=== PATIENT | female | born 1955 | race Caucasian/White ===

== ENCOUNTER 2017-01-29 01:16 | Inpatient (IN) | payer MEDICAID ==
[~2017-01-29] VITALS: Ht 157.5 cm; Wt 62.2 kg
[~2017-01-29 01:16] MED LIST: AMLO2.5T PO; APIX5TAB PO; ASPI-621 PO; ATOR40TA78 PO; CLON1PAT2 TD; DAPT500V6 IV; FLUC200T PO; FURO-92 PO; FURO10VI37 IV; GABA-826 PO; GABA300C10 PO; GLIP5TAB10 PO; INSU100C5 SQ-INSULIN; INSU100I28 SQ; INSU100I28 SQ-INSULIN; LEVO750T26 PO; LISI5TAB7 PO; METF10002 PO; METF850T PO; OXYC1TAB7 PO; POTA20TA14 PO; SENN1TAB7 PO; SIMV20TA PO; TRAM50TA2 PO
[2017-01-29] MEDS ORDERED: SODIUM CHLORIDE FLUSH 10ML SYR IVF ONE ×2 (02:00→02:30)
[2017-01-29] MEDS ORDERED: VANCOMYCIN PER PHARMACY MC PRN (02:30)
[2017-01-29] MEDS ORDERED: FLUCONAZOLE 100 MG TABLET PO ONE (02:30)
[2017-01-29] MEDS ORDERED: AMPICILLIN/SULBACTAM 1,500 MG in SODIUM CHLORIDE 0.9% 50 ML IV ONE (02:30)
[2017-01-29] MEDS ORDERED: VANCOMYCIN 1,300 MG in SODIUM CHLORIDE 0.9% 250 ML IV ONE (02:30)
[2017-01-29 02:34] LABS: HEMATOCRIT 35.6 % (34.6-47.8); HEMOGLOBIN 11.6 g/dL (11.7-16.4); WHITE BLOOD COUNT 10.9 x10^3/uL (3.4-10)
[2017-01-29 02:42] LABS: ASPARTATE AMINO TRANSFERASE 13 U/L (15-37); BLOOD UREA NITROGEN 15 mg/dL (7-18)
[2017-01-29] MEDS ORDERED: SODIUM CHLORIDE 0.9% 1,000ML IVBOLUS ONE (03:30)
[2017-01-29] MEDS: SODIUM CHLORIDE 0.9% 1,000 ML IV SCH ×2 (04:08→17:51)
[2017-01-29] MEDS ORDERED: INSULIN REGULAR 100 UNITS/ML, 3ML VIAL ONE (04:19)
[2017-01-29] MEDS ORDERED: GLUCAGON 1 MG IM PRN (04:30)
[2017-01-29] MEDS ORDERED: DEXTROSE 4 GM TAB.CHEW PO PRN (04:30)
[2017-01-29] MEDS ORDERED: hydrALAzine 20 MG/ML, 1ML IVPush PRN (04:30)
[2017-01-29] MEDS ORDERED: DEXTROSE 50%, 50ML SYRINGE IVPush PRN (04:30)
[2017-01-29] MEDS ORDERED: ACETAMINOPHEN 325 MG TABLET PO PRN (04:30)
[2017-01-29] MEDS ORDERED: morphine SULFATE 10 MG/ML, 1ML IVPush PRN (04:30)
[2017-01-29] MEDS ORDERED: ONDANSETRON 2MG/ML, 2ML IVPush PRN (04:30)
[2017-01-29] MEDS: INSULIN REGULAR 100 UNITS/ML, 3ML VIAL SQ-INSULIN SCH ×4 (04:31→16:00)
[2017-01-29] MEDS: SODIUM CHLORIDE FLUSH 10ML SYR IVF SCH ×2 (09:00→21:00)
[2017-01-29] MEDS: NYSTATIN TOPICAL POWDER 15GM TP SCH ×3 (09:00→21:51)
[2017-01-29] MEDS ORDERED: SENNA/DOCUSATE TABLET ONE (09:01)
[2017-01-29] MEDS: ASPIRIN 81 MG TABLET EC PO SCH (09:30)
[2017-01-29] MEDS: LISINOPRIL 5 MG TABLET PO SCH (09:32)
[2017-01-29] MEDS: GABAPENTIN 100 MG CAPSULE PO SCH ×3 (09:32→21:52)
[2017-01-29] MEDS: SENNA/DOCUSATE TABLET PO SCH (09:33)
[2017-01-29] MEDS: INSULIN ASPART 100 UNITS/ML, PEN SQ-INSULIN SCH ×4 (09:38→21:52)
[2017-01-29] MEDS: INSULIN DETEMIR 100 UNITS/ML, PEN SQ-INSULIN SCH (09:40)
[2017-01-29 12:35] VITALS: BP 113/68
[2017-01-29] MEDS ORDERED: FLU VACC QS2017-18 (36MOS+) UP/PF 0.5 ML IM-VACC ONE (16:30)
[2017-01-29 20:14] VITALS: BP 117/66
[2017-01-29] MEDS ORDERED: SIMVASTATIN 20 MG TABLET PO SCH (21:00)
[2017-01-29] MEDS: ATORVASTATIN 40 MG TABLET PO SCH (21:52)
[2017-01-30 02:02] VITALS: BP 112/74
[2017-01-30] MEDS: SODIUM CHLORIDE 0.9% 1,000 ML IV SCH (04:40)
[2017-01-30 06:05] LABS: HEMATOCRIT 28.1 % (34.6-47.8); HEMOGLOBIN 9.4 g/dL (11.7-16.4); WHITE BLOOD COUNT 6.6 x10^3/uL (3.4-10)
[2017-01-30 06:24] LABS: ASPARTATE AMINO TRANSFERASE 19 U/L (15-37); BLOOD UREA NITROGEN 17 mg/dL (7-18)
[2017-01-30] MEDS ORDERED: MAGNESIUM SULFATE PMX 2GM/50ML 50 ML IV ONE (07:00)
[2017-01-30] MEDS: ASPIRIN 81 MG TABLET EC PO SCH (07:07)
[2017-01-30 07:41] VITALS: BP 111/68
[2017-01-30] MEDS: INSULIN ASPART 100 UNITS/ML, PEN SQ-INSULIN SCH ×4 (08:08→21:18)
[2017-01-30] MEDS: SODIUM CHLORIDE FLUSH 10ML SYR IVF SCH ×2 (08:09→21:05)
[2017-01-30] MEDS: LISINOPRIL 5 MG TABLET PO SCH (08:16)
[2017-01-30] MEDS: CEFTRIAXONE PMX 1GM/50ML 50 ML IV SCH (08:16)
[2017-01-30] MEDS: GABAPENTIN 100 MG CAPSULE PO SCH ×3 (08:16→21:05)
[2017-01-30] MEDS: NYSTATIN TOPICAL POWDER 15GM TP SCH ×3 (08:17→21:19)
[2017-01-30] MEDS: INSULIN DETEMIR 100 UNITS/ML, PEN SQ-INSULIN SCH (08:17)
[2017-01-30] MEDS: LACTULOSE 20 GM/30 ML UDC PO SCH ×2 (09:00→21:06)
[2017-01-30] MEDS: SENNA/DOCUSATE TABLET PO SCH (09:00)
[2017-01-30] MEDS: POLYETHYLENE GLYCOL 17 GM PACKET PO SCH (09:00)
[2017-01-30 14:00] VITALS: BP 112/66
[2017-01-30] MEDS: ATORVASTATIN 40 MG TABLET PO SCH (21:05)
[2017-01-30 21:22] VITALS: BP 137/81
[2017-01-31 02:58] VITALS: BP 128/72
[2017-01-31] MEDS: ASPIRIN 81 MG TABLET EC PO SCH (05:50)
[2017-01-31 06:44] VITALS: BP 132/68
[2017-01-31] MEDS: POLYETHYLENE GLYCOL 17 GM PACKET PO SCH (07:54)
[2017-01-31] MEDS: SENNA/DOCUSATE TABLET PO SCH (07:54)
[2017-01-31] MEDS: LISINOPRIL 5 MG TABLET PO SCH (07:54)
[2017-01-31] MEDS: CEFTRIAXONE PMX 1GM/50ML 50 ML IV SCH (07:54)
[2017-01-31] MEDS: GABAPENTIN 100 MG CAPSULE PO SCH ×3 (07:54→22:02)
[2017-01-31] MEDS: LACTULOSE 20 GM/30 ML UDC PO SCH ×2 (07:54→22:03)
[2017-01-31] MEDS: INSULIN ASPART 100 UNITS/ML, PEN SQ-INSULIN SCH ×4 (07:55→22:15)
[2017-01-31] MEDS: INSULIN DETEMIR 100 UNITS/ML, PEN SQ-INSULIN SCH (07:55)
[2017-01-31] MEDS: NYSTATIN TOPICAL POWDER 15GM TP SCH ×3 (07:56→22:03)
[2017-01-31] MEDS: SODIUM CHLORIDE FLUSH 10ML SYR IVF SCH ×2 (08:04→22:02)
[2017-01-31 14:00] VITALS: BP 122/75
[2017-01-31 19:54] VITALS: BP 137/78
[2017-01-31] MEDS: ATORVASTATIN 40 MG TABLET PO SCH (22:02)
[2017-01-31] MEDS: SULFAMETH./TRIMETHOPRIM DS 800MG/160MG TABLET PO SCH (22:02)
[2017-02-01 01:40] VITALS: BP 131/72
[2017-02-01 05:49] LABS: BLOOD UREA NITROGEN 16 mg/dL (7-18)
[2017-02-01] MEDS: ASPIRIN 81 MG TABLET EC PO SCH (06:40)
[2017-02-01 07:33] VITALS: BP 112/65
[2017-02-01] MEDS: INSULIN ASPART 100 UNITS/ML, PEN SQ-INSULIN SCH ×4 (08:03→21:00)
[2017-02-01] MEDS: SULFAMETH./TRIMETHOPRIM DS 800MG/160MG TABLET PO SCH ×2 (08:04→21:52)
[2017-02-01] MEDS: GABAPENTIN 100 MG CAPSULE PO SCH ×3 (08:04→21:52)
[2017-02-01] MEDS: LACTULOSE 20 GM/30 ML UDC PO SCH ×2 (08:04→21:52)
[2017-02-01] MEDS: LISINOPRIL 5 MG TABLET PO SCH (08:04)
[2017-02-01] MEDS: SENNA/DOCUSATE TABLET PO SCH (08:04)
[2017-02-01] MEDS: SODIUM CHLORIDE FLUSH 10ML SYR IVF SCH ×2 (08:04→21:52)
[2017-02-01] MEDS: POLYETHYLENE GLYCOL 17 GM PACKET PO SCH (08:04)
[2017-02-01] MEDS: NYSTATIN TOPICAL POWDER 15GM TP SCH ×3 (08:05→21:55)
[2017-02-01] MEDS: INSULIN DETEMIR 100 UNITS/ML, PEN SQ-INSULIN SCH (08:05)
[2017-02-01 17:40] VITALS: BP 111/70
[2017-02-01 19:48] VITALS: BP 116/74
[2017-02-01] MEDS: ATORVASTATIN 40 MG TABLET PO SCH (21:52)
[2017-02-02 02:20] VITALS: BP 110/59
[2017-02-02] MEDS: ASPIRIN 81 MG TABLET EC PO SCH (05:38)
[2017-02-02 07:27] VITALS: BP 120/70
[2017-02-02 07:30] VITALS: BP 120/70
[2017-02-02] MEDS: INSULIN ASPART 100 UNITS/ML, PEN SQ-INSULIN SCH ×2 (08:28→11:00)
[2017-02-02] MEDS: SENNA/DOCUSATE TABLET PO SCH (08:29)
[2017-02-02] MEDS: INSULIN DETEMIR 100 UNITS/ML, PEN SQ-INSULIN SCH (08:29)
[2017-02-02] MEDS: LACTULOSE 20 GM/30 ML UDC PO SCH (08:29)
[2017-02-02] MEDS: GABAPENTIN 100 MG CAPSULE PO SCH (08:29)
[2017-02-02] MEDS: POLYETHYLENE GLYCOL 17 GM PACKET PO SCH (08:29)
[2017-02-02] MEDS: SULFAMETH./TRIMETHOPRIM DS 800MG/160MG TABLET PO SCH (08:29)
[2017-02-02] MEDS: LISINOPRIL 5 MG TABLET PO SCH (08:29)
[2017-02-02] MEDS: SODIUM CHLORIDE FLUSH 10ML SYR IVF SCH (08:29)
[2017-02-02] MEDS: NYSTATIN TOPICAL POWDER 15GM TP SCH (08:30)
[2017-02-02] MEDS ORDERED: SULF1TAB24 PO (11:05)
== END 2017-02-02 13:51 | disposition home or self-care (01) | DRG 602 ==
LOC: ED 01:34 → EDIP 03:44 → SUATTDRO 03:58 → 3NE 12:09
PROVIDERS: ADMIT Hospitalist; ATTEND Family Medicine
DX: L03.115 Cellulitis of right lower limb (principal); E43 Unspecified severe protein-calorie malnutrition; E11.40 Type 2 diabetes mellitus with diabetic neuropathy, unspecified; R53.2 Functional quadriplegia; B37.3 Candidiasis of vulva and vagina; D63.8 Anemia in other chronic diseases classified elsewhere; N39.0 Urinary tract infection, site not specified; E11.65 Type 2 diabetes mellitus with hyperglycemia; E86.0 Dehydration; I10 Essential (primary) hypertension; S91.309A Unspecified open wound, unspecified foot, initial encounter; K59.00 Constipation, unspecified; B96.1 Klebsiella pneumoniae [K. pneumoniae] as the cause of diseases classified elsewhere; Z16.12 Extended spectrum beta lactamase (ESBL) resistance; Z91.19 Patient's noncompliance with other medical treatment and regimen; Z86.718 Personal history of other venous thrombosis and embolism; Z59.0 Homelessness; Z79.4 Long term (current) use of insulin; Z22.322 Carrier or suspected carrier of Methicillin resistant Staphylococcus aureus; Z88.5 Allergy status to narcotic agent; Z88.8 Allergy status to other drugs, medicaments and biological substances; Z79.899 Other long term (current) drug therapy; Z79.1 Long term (current) use of non-steroidal anti-inflammatories (NSAID); Z79.2 Long term (current) use of antibiotics; Z68.25 Body mass index [BMI] 25.0-25.9, adult
CPT/HCPCS: 36415; 71010; 74000; 80048; 80053; 81001; 82010; 82040; 82947; 82962; 83605; 83735; 84100; 84145; 85025; 87040; 87070; 87077; 87086; 87186; 87205; 90686; 93005; 96365; J0696; J1815; J3370; J0295; J3475; J7030; J7050

== ENCOUNTER 2017-02-18 06:17 | Emergency (ER) | payer MEDICAID ==
[~2017-02-18] VITALS: Ht 157.5 cm; Wt 70.0 kg
[~2017-02-18 06:17] MED LIST changes: +SULF1TAB24 PO
[2017-02-18 10:43] LABS: ALANINE AMINOTRANSFERASE 26 U/L (12-78); ALBUMIN 2.9 g/dL (3.4-5.0); ANION GAP 8 mmol/L (5-15); CALCIUM 8.8 mg/dL (8.5-10.1); CHLORIDE 104 mmol/L (98-107); CREATININE 0.96 mg/dL (0.55-1.02)
[2017-02-18 10:45] LABS: ALKALINE PHOSPHATASE 101 U/L (45-117); BILIRUBIN,TOTAL 0.2 mg/dL (0.2-1.0); TOTAL PROTEIN 8.3 g/dL (6.4-8.2)
[2017-02-18 11:05] VITALS: BP 172/84
[2017-02-18 11:12] LABS: BASOPHILS # (AUTO) 0.02 x10^3/uL (0-0.1); BASOPHILS % (AUTO) 0 % (0-1); EOSINOPHILS # (AUTO) 0.04 x10^3/uL (0-0.4); EOSINOPHILS % (AUTO) 1 % (1-7); LYMPHOCYTES # (AUTO) 1.85 x10^3/uL (1-3.4); LYMPHOCYTES % (AUTO) 25 % (22-44); MD NO; MEAN CORPUSCULAR HEMOGLOBIN 28.7 pg (27.0-34.8); MEAN CORPUSCULAR VOLUME 87.1 fL (80-100); MEAN PLATELET VOLUME 7.3 fL (7.4-10.4); MONOCYTES # (AUTO) 0.32 x10^3/uL (0.2-0.8); MONOCYTES % (AUTO) 4 % (2-9); NEUTROPHILS # (AUTO) 5.11 x10^3/uL (1.8-6.8); NEUTROPHILS % (AUTO) 70 % (42-75); PLATELET COUNT 279 x10^3/uL (130-400); RED BLOOD COUNT 4.29 x10^6/uL (3.82-5.3); RED CELL DISTRIBUTION WIDTH 15.6 % (9.6-15.2)
== END 2017-02-18 11:53 | disposition home or self-care (01) ==
LOC: ED 10:36
DX: R10.31 Right lower quadrant pain (principal); I10 Essential (primary) hypertension; E11.9 Type 2 diabetes mellitus without complications; Z59.0 Homelessness; Z90.49 Acquired absence of other specified parts of digestive tract; Z86.718 Personal history of other venous thrombosis and embolism
CPT/HCPCS: 36415; 80053; 82962; 83690; 85025; 99284